=== PATIENT | female | born 1945 | race Hispanic/Latino ===

== ENCOUNTER 2018-01-14 07:04 | Observation (INO) | payer MEDICARE ==
[2018-01-11 12:22] LABS: BASOPHILS % 0.5 % (0.0-1.0); EOSINOPHILS # (AUTO) 0.2 (0.0-0.4); HEMATOCRIT 46.5 % (34.2-44.1); HEMOGLOBIN 14.9 g/dL (12.0-16.0); LYMPHOCYTES # (AUTO) 2.1 (1.0-3.2); LYMPHOCYTES % 28.2 % (18.0-39.1); MEAN CORPUSCULAR HEMOGLOBIN 29.3 pg (28-32); MEAN CORPUSCULAR VOLUME 91.5 fL (81-99); MONOCYTES # (AUTO) 0.7 (0.2-0.8); MONOCYTES % 8.8 % (4.4-11.3); NEUTROPHILS # (AUTO) 4.5 (2.1-6.9); NEUTROPHILS % 60.2 % (38.7-80.0); PLATELET COUNT 214 x10e3/uL (140-360); RED BLOOD COUNT 5.08 x10e6/uL (3.6-5.1); RED CELL DISTRIBUTION WIDTH 13.1 % (11.7-14.4)
[2018-01-11 12:40] LABS: ANION GAP 14.7 mmol/L (8-16); BLOOD UREA NITROGEN 22 mg/dL (7-26); BUN/CREATININE RATIO 26 (6-25); CALCIUM 9.7 mg/dL (8.4-10.2); CARBON DIOXIDE 24 mmol/L (22-29); CHLORIDE 107 mmol/L (98-107); CREATININE, SERUM 0.84 mg/dL (0.57-1.11); EST GLOMERULAR FILTRATION RATE > 60 ML/MIN (60-); GLUCOSE 100 mg/dL (74-118); POTASSIUM 3.7 mmol/L (3.5-5.1); SODIUM 142 mmol/L (136-145)
--- NOTE | 2018-01-11 12:57 | Diagnostic Imaging Report ---
EXAMINATION: CHEST 2 VIEWS INDICATION: Osteoarthritis of the right knee. Preop for surgery. Chest pain. COMPARISON: 11/30/2014 FINDINGS: TUBES and LINES: None. LUNGS: Lungs are well inflated. There are mild chronic appearing changes in the lungs. There is no evidence of pneumonia or pulmonary edema. PLEURA: No pleural effusion or pneumothorax. HEART AND MEDIASTINUM: The heart is prominent in size. There is a tortuous thoracic aorta. BONES AND SOFT TISSUES: No acute osseous lesion. Soft tissues are unremarkable. UPPER ABDOMEN: No free air under the diaphragm. IMPRESSION: No acute thoracic abnormality. Signed by: Dr. Seymour De La Rosa M.D. on 01/11/2018 12:54 PM
[~2018-01-14] VITALS: Ht 149.9 cm; Wt 75.9 kg
[~2018-01-14 07:04] MED LIST: ALENDRONATE SOD70 MG PO; ARICEPT5 MG PO; BACITRACIN 50,000 UNIT VIAL ONE; COMBIGAN EYE DRO5 ML OP; DICLOFENAC PO; IBUPROFEN200 MG PO; LISINOPRIL10 MG PO; NIFEDIPINE ER30 M1 PO; OMEPRAZOLE40 MG PO; SIMVASTATIN20 MG PO; SINGULAIR10 MG PO; ST. JOSEPH ASPI81 MG PO; TRANEXAMIC ACID 1,000 MG/10 ML ML ONE; TYLENOL WITH C1 EACH PO
[2018-01-14] MEDS ORDERED: DEXAMETHASONE SOD PHOS 10 MG/1 ML VIAL ONE (07:29)
[2018-01-14] MEDS ORDERED: CELECOXIB 200 MG CAP ONE (07:29)
[2018-01-14] MEDS ORDERED: GABAPENTIN 300 MG CAP ONE (07:29)
[2018-01-14] MEDS ORDERED: CEFAZOLIN SOD 2 GM/D5W 50ML 50 ML IV ONE (07:30)
[2018-01-14] MEDS ORDERED: ROPIVACAINE 246.25 MG, EPINEPHRINE HCL 1:1000 0.5 MG, CLONIDINE HCL 0.08 MG, KETOROLAC ... INJ ONE ×5 (07:30)
[2018-01-14] MEDS ORDERED: ADVIL200 M1 PO (07:44)
[2018-01-14] MEDS: SODIUM CHLORIDE 0.9% 1000ML 1,000 ML IV SCH ×2 (09:55→17:20)
[2018-01-14] MEDS ORDERED: DIPHENHYDRAMINE HCL INJ 50 MG/ML VIAL IM/IV PRN (10:00)
[2018-01-14] MEDS ORDERED: ACETAMINOPHEN 650 MG SUPP PR PRN (10:00)
[2018-01-14] MEDS ORDERED: ZOLPIDEM TARTRATE 5 MG TAB PO PRN (10:00)
[2018-01-14] MEDS ORDERED: HYDROCODONE/APAP 5MG-325MG TAB PO PRN ×2 (10:00→12:15)
[2018-01-14] MEDS ORDERED: KETOROLAC TROMETHAMINE 30 MG/ML VIAL IV PRN (10:00)
[2018-01-14] MEDS ORDERED: PROMETHAZINE HCL (IM) 25 MG/ML VIAL INJ PRN (10:00)
[2018-01-14] MEDS ORDERED: ONDANSETRON HCL INJ 2 MG/ML VIAL IV PRN (10:00)
[2018-01-14] MEDS ORDERED: DOCUSATE SODIUM 100 MG CAP PO PRN (10:00)
[2018-01-14] MEDS ORDERED: MEPERIDINE HCL INJ 50 MG/ML INJ ONE (10:14)
--- NOTE | 2018-01-14 10:48 | Diagnostic Imaging Report ---
PROCEDURE: X-RAY RIGHT KNEE, ONE OR TWO VIEWS COMPARISON: None. INDICATIONS:POST OPERATIVE FOR RIGHT KNEE SURGERY FINDINGS: See conclusion. CONCLUSION: Status post total right knee replacement with surrounding soft tissue swelling, air and max consistent with recent surgery. No periprosthetic displaced fractures. Dictated by: Crow Samuels M.D. on 01/14/2018 at 10:56 Electronically approved by: Crow Samuels M.D. on 01/14/2018 at 10:56
[2018-01-14] MEDS: ACETAMINOPHEN 1000 MG/100 ML IV SCH ×2 (12:00→17:33)
[2018-01-14 13:00] VITALS: BP 143/72
[2018-01-14] MEDS ORDERED: CEFAZOLIN SOD 1 GM/D5W 50ML 50 ML IV SCH (14:00)
--- NOTE | 2018-01-14 14:50 | Operative Report ---
DATE OF PROCEDURE: January 14, 2018 PROMOTIONS REPRESENTATIVE: Irwin Barr PA-C The patient was brought to the operating room for induction of anesthesia. Throughout this case, my PA's assistance was necessary for retraction of soft tissue and positioning of the extremity. This allows for efficient and technically successful execution of the operation and is considered medically necessary. PREOPERATIVE DIAGNOSIS: Osteoarthritis, right knee. POSTOPERATIVE DIAGNOSIS: Osteoarthritis, right knee. PROCEDURE: Right total knee arthroplasty. INDICATIONS: The patient is a 72-year-old lady who has severe end-stage arthritis of her right knee. She has failed conservative management and would like to proceed with a right total knee replacement. The risks and benefits have been discussed. She states she understands and wishes to proceed. DESCRIPTION OF PROCEDURE: The patient was brought to the operating room and placed under general anesthetic. She received a regional block, prophylactic antibiotics and tranexamic acid in the holding area. Her right lower extremity was prepped and draped in a sterile manner. A preoperative time out was performed. Extremity was exsanguinated and a proximal tourniquet was inflated to 300 mmHg. An anterior approach with a medial parapatellar arthrotomy was performed. Soft tissue releases were performed to bring the knee up into flexion with the patella everted. 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 The PCL was sacrificed. A Yancey and Nephew posterior stabilized Journey knee system was used throughout the case. An extramedullary cutting guide was used to resect the proximal tibia. The tibial baseplate was noted to be a size number 3. The central fin punch was impacted and attention was directed towards the distal femur. An intramedullary cutting guide was used to resect the distal femur in 6 degrees of valgus and rotation referencing off of a combination of landmarks including Swisher line, the upper condylar axis and posterior condyles. The femoral component was a size number 4. The chamfer cuts were made. Trial reductions were performed. A size 11 mm posterior stabilized tibial insert provided appropriate soft tissue balancing in full extension and 90 degrees of flexion. The patella was resurfaced with a 29 mm x 7.5 mm patellar button. The thickness was checked before and after and was right around 22 mm. Patellar tracking was noted to be concentric. The trial implants were then all removed. A 100 mL premixed pericapsular NETO injection was then placed into the surrounding soft tissue. The knee was thoroughly irrigated with a shower-tip pulsatile lavage. The components were cemented into place using a single mix Palacos cement loaded with antibiotics. Care was taken to remove extravasated cement. The wound was further irrigated while the cement cured. The arthrotomy was closed with interrupted number 1 Ethibond. The knee was put through flexion and extension to ensure a secure closure. The skin was closed with subcuticular Vicryl and max. A sterile bandage Aquacel bandage was applied. The patient was extubated and transported to the recovery room in stable condition. Blood loss was minimal. All needle and sponge counts were correct. Job#: [id number]
[2018-01-14 15:49] VITALS: BP 132/63
[2018-01-14] MEDS ORDERED: CELECOXIB 100 MG CAP PO SCH (17:00)
[2018-01-14] MEDS: CEFAZOLIN SOD 1 GM VIAL IV SCH (17:32)
[2018-01-14] MEDS: ASPIRIN 325 MG TAB PO SCH (17:32)
[2018-01-14] MEDS: CELECOXIB 200 MG CAP PO SCH (17:33)
[2018-01-14] MEDS ORDERED: MIDAZOLAM HCL 2 MG/2 ML VIAL ONE (18:35)
[2018-01-14] MEDS ORDERED: FENTANYL CITRATE/PF 100MCG/2 ML INJ ONE (18:35)
[2018-01-14] MEDS ORDERED: ROPIVACAINE 0.5% 5 MG/ML 30 ML SDV ONE (18:40)
[2018-01-14] MEDS ORDERED: SEVOFLURANE INHAL SOLN 250 ML PEN BTL ONE (18:52)
[2018-01-14] MEDS ORDERED: ACETAMINOPHEN 1000 MG/100 ML IV ONE (18:52)
[2018-01-14] MEDS ORDERED: PROPOFOL IV EMULSION 10 MG/ML 20 ML VIAL ONE (18:52)
[2018-01-14] MEDS ORDERED: ONDANSETRON HCL INJ 2 MG/ML VIAL ONE (18:52)
[2018-01-14] MEDS ORDERED: LIDOCAINE HCL 2% LOCAL INJ 5 ML SDV VIAL INJ ONE (18:52)
[2018-01-14 19:59] VITALS: BP 143/72
[2018-01-14 20:00] VITALS: BP 144/66
[2018-01-15] VITALS: BP 114/56
[2018-01-15] MEDS: ACETAMINOPHEN 1000 MG/100 ML IV SCH ×2 (00:09→05:40)
[2018-01-15 00:17] VITALS: BP 144/66
[2018-01-15] MEDS: CEFAZOLIN SOD 1 GM VIAL IV SCH ×2 (01:08→09:00)
[2018-01-15] MEDS: HYDROCODONE/APAP 7.5MG-325MG 1 EA TAB PO PRN ×2 (02:15→13:45)
[2018-01-15 04:00] VITALS: BP 128/61
[2018-01-15] MEDS: SODIUM CHLORIDE 0.9% 1000ML 1,000 ML IV SCH (05:23)
[2018-01-15 07:26] LABS: HEMATOCRIT 39.2 % (34.2-44.1); HEMOGLOBIN 12.8 g/dL (12.0-16.0)
[2018-01-15 07:35] VITALS: BP 149/70
[2018-01-15] MEDS: CELECOXIB 200 MG CAP PO SCH (08:00)
[2018-01-15] MEDS: ASPIRIN 325 MG TAB PO SCH (09:00)
[2018-01-15] MEDS ORDERED: ACETAMINOPHEN 1000 MG/100 ML IV PRN (10:00)
[2018-01-15 11:31] VITALS: BP 168/77
[2018-01-15] MEDS ORDERED: ASPIRIN325 MG PO (12:23)
[2018-01-15 15:25] VITALS: BP 161/77
--- OUTSIDE RECORDS SUMMARY | 2018-01-22 11:53 | XMS REPORT ---
Author Author [facility] Address Unknown Phone Unavailable Care Team Providers Care Product Designer Name Role Phone JESSICA RIBERA Unavailable Unavailable Problems This patient has no known problems. Allergies, Adverse Reactions, Alerts This patient has no known allergies or adverse reactions. Medications This patient has no known medications. Results Test Description Test Time Test Comments Text Results Atomic Results Result Comments KNEE RIGHT 1-2 VIEWS 2018-01-14 10:56:00 [place] [address] Patient Name: AMADOU SPEAR MR #: [id number] : 1945 Age/Sex: 72/F Req #: [id number] [facility] Physician: Ordered by: JESSICA RIBERA MD Report #: [id number] Location: OR Room/Bed: Procedure: [id number] DX/KNEE RIGHT 1-2 VIEWS Exam Date: 01/14/18 Exam Time: 1033 REPORT STATUS: Signed PROCEDURE: X-RAY RIGHT KNEE, ONE OR TWO VIEWS COMPARISON: None. INDICATIONS: POST OPERATIVE FOR RIGHT KNEE SURGERY FINDINGS: See conclusion. CONCLUSION: Status post total right knee replacement with surrounding soft tissue swelling, air and max consistent with recent surgery. No periprosthetic displaced fractures. Dictated by: Jessica Sepulveda M.D. on 01/14/2018 at 10:56 Electronically approved by: Jessica Sepulveda M.D. on 01/14/2018 at 10:56 Dictated By: JESSICA SEPULVEDA MD [id number] Transcribed By: MARCO ANTONIO on 01/14/18 105 COPY TO: JESSICA RIBERA MD CHEST 2 VIEWS 2018-01-11 12:53:00 [place] [address] Patient Name: AMADOU SPEAR MR #: [id number] : 1945 Age/Sex: 72/F Req #: [id number] Adm Physician: Ordered by: JESSICA RIBERA MD Report #: [id number] Location: OR Room/Bed: Procedure: [id number] DX/CHEST 2 VIEWS Exam Date: 01/11/18 Exam Time: 1226 REPORT STATUS: Signed EXAMINATION: CHEST 2 VIEWS INDICATION: Osteoarthritis of the right knee. Preop for surgery. Chest pain. COMPARISON: 11/30/2014 FINDINGS: TUBES and LINES: None. LUNGS: Lungs are well inflated. There are mild chronic appearing changes in the lungs. There is no evidence of pneumonia or pulmonary edema. PLEURA: No pleural effusion or pneumothorax. HEART AND MEDIASTINUM: The heart is prominent in size. There is a tortuous thoracic aorta. BONES AND SOFT TISSUES: No acute osseous lesion. Soft tissues are unremarkable. UPPER ABDOMEN: No free air under the diaphragm. IMPRESSION: No acute thoracic abnormality. Signed by: Dr. Seymour De La Rosa M.D. on 01/11/2018 12:54 PM Dictated By: SEYMOUR DE LA ROSA MD, MD [id number] Transcribed By: VÍCTOR on 01/11/18 1254 COPY TO: JESSICA RIBERA MD
--- NOTE | 2018-03-18 14:25 | Discharge Summary ---
CHIEF COMPLAINT: Right knee pain. HISTORY OF PRESENT ILLNESS: This patient is a 72-year-old female with a long history of off-and-on knee pain which has gotten progressively worse over the last few months. Her x-rays are consistent with end-stage osteoarthritis. The findings and options were discussed. The patient presents wanting to proceed with a right total knee replacement. The risks and benefits of the procedure were explained. The patient states she understands and wishes to proceed. HOSPITAL COURSE: The patient underwent a right total knee replacement without complications. She was then transferred to the recovery room and the floor in stable condition. She progressed nicely with postoperative physical therapy. She was able to be discharged home on postop day 1. PRINCIPAL DIAGNOSIS: Osteoarthritis right knee. PRINCIPAL PROCEDURE: Right total knee arthroplasty. DISCHARGE INSTRUCTIONS: The patient was discharged home with home health and physical therapy arranged. She was to be weightbearing as tolerated with a rolling walker. She was to resume her home medications as directed. She was to take aspirin twice a day for thromboprophylaxis. She was instructed to follow up in our office in roughly 10 days. Dictated by: Irwin Barr PA-C JESSICA RIBERA MD Job#: [id number]
--- NOTE | 2018-03-23 13:06 | Consultation ---
DATE OF CONSULTATION: January 15, 2018 REASON FOR CONSULTATION: Postop medical management. HISTORY OF PRESENT ILLNESS: Patient is a 72-year-old lady who is status post total knee arthroplasty, who is doing well postoperatively with good pain control. Denies any chest pain, fever, chills, nausea, vomiting, headache, shortness of breath on review of systems. PAST MEDICAL HISTORY: Significant for hypertension and diabetes. MEDICATIONS: See MAR. ALLERGIES: NONE. SOCIAL HISTORY: Nonsmoker, nondrinker. FAMILY HISTORY: Noncontributory at the time. PHYSICAL EXAMINATION GENERAL: She is in no apparent distress. NECK: Supple. CARDIOVASCULAR: Regular rate and rhythm. LUNGS: Clear to auscultation bilaterally. ABDOMEN: Good bowel sounds. Soft, nontender. EXTREMITIES: No clubbing or cyanosis. NEUROLOGIC: Nonfocal. ASSESSMENT AND PLAN 1. Anemia. Check a CBC. 2. Hypertension. Continue with current care and monitoring. 3. Diabetes. Continue with current care and monitoring. 4. Knee pain. Continue with physical therapy. Please see hospital chart for full details. Job#: [id number] SHAYY
== END 2018-01-15 16:00 | disposition home health service (06) ==
LOC: OR 07:04 → PACU V 09:57 → MED/SURG 12:44
PROVIDERS: ADMIT Specialist; ATTEND Specialist
DX: M17.11 Unilateral primary osteoarthritis, right knee (principal); E11.9 Type 2 diabetes mellitus without complications; I10 Essential (primary) hypertension; Z86.2 Personal history of diseases of the blood and blood-forming organs and certain disorders involving the immune mechanism; K21.9 Gastro-esophageal reflux disease without esophagitis; D64.9 Anemia, unspecified
CPT/HCPCS: 27447; 36415 ×3; 71046; 73560; 80048; 82948 ×2; 85014; 85018; 85025; 86850; 86900; 86920; 93005; 97110; 97116; 97161; 97530; C1713; G0378 ×2; G8978; G8979; J0171; J0690 ×2; J1100; J1885 ×2; J2001; J2175; J2250; J2405; J2795; J7030

== ENCOUNTER 2018-01-16 04:41 | Emergency (ER) | payer MEDICARE ==
[~2018-01-16] VITALS: Ht 149.9 cm; Wt 73.0 kg
[~2018-01-16 04:41] MED LIST changes: +ADVIL200 M1 PO; +ASPIRIN325 MG PO; -BACITRACIN 50,000 UNIT VIAL ONE; -TRANEXAMIC ACID 1,000 MG/10 ML ML ONE
[2018-01-16] MEDS ORDERED: HYDROCODONE/APAP 10MG-325MG TAB PO ONE (05:00)
[2018-01-16] MEDS ORDERED: ONDANSETRON HCL 4 MG ORAL DISINTEGRATING TAB PO ONE (05:00)
[2018-01-16] MEDS ORDERED: KETOROLAC TROMETHAMINE 60 MG/2 ML VIAL IM ONE (05:00)
== END 2018-01-16 08:45 | disposition home or self-care (01) ==
LOC: ER 04:41
DX: M25.561 Pain in right knee (principal); Z96.651 Presence of right artificial knee joint; Z82.49 Family history of ischemic heart disease and other diseases of the circulatory system; Z91.128 Patient's intentional underdosing of medication regimen for other reason; I10 Essential (primary) hypertension; E11.9 Type 2 diabetes mellitus without complications
CPT/HCPCS: 99283; J1885